=== PATIENT | male | born 1990 | race Caucasian/White ===

== ENCOUNTER 2017-05-02 14:08 | Emergency (ER) | payer OTHER ==
[2017-05-02 14:14] VITALS: BP 141/90; PULSE 78; TEMP 99.8; BMI 22.3
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
== END 2017-05-02 14:50 | disposition home or self-care (01) ==
LOC: FER 14:08
DX: S13.4XXA Sprain of ligaments of cervical spine, initial encounter (principal); V43.52XA Car driver injured in collision with other type car in traffic accident, initial encounter; Y93.89 Activity, other specified; Y92.410 Unspecified street and highway as the place of occurrence of the external cause
CPT/HCPCS: 99282-25